=== PATIENT | female | born 1970 | race Caucasian/White ===

== ENCOUNTER 2016-08-14 13:33 | Emergency (ER) | payer SELFPAY ==
[~2016-08-14] VITALS: Ht 165.1 cm; Wt 52.2 kg
[~2016-08-14 13:33] MED LIST: AMBIEN
[2016-08-14] MEDS ORDERED: TOPAMAX PO (13:45)
[2016-08-14] MEDS ORDERED: LAMICTAL PO (13:45)
--- NOTE | 2016-08-14 15:00 | NUR ---
Hearing Impaired Itinerant Teacher is at bedside to collect blood specimens. Pt is refusing blood draw at this time due to her concerns about her health care coverage. Nathan from ER admitting was notified and spoke with the patient about her coverage.
--- NOTE | 2016-08-14 15:20 | NUR ---
Blood drawn by help desk analyst. Per help desk analyst Jacek consent for HIV draw is not required.
[2016-08-14 15:36] LABS: BILIRUBIN,DIRECT 0.1 mg/dL (0.0-0.2); BILIRUBIN,TOTAL 0.4 mg/dL (0.2-1.0); TOTAL PROTEIN, SERUM 7.9 g/dL (6.4-8.2)
--- NOTE | 2016-08-14 15:39 | NUR ---
Pt states she can no longer wait for her written ACI. Pt was given veral ACI by Dr Hancock.
--- NOTE | 2016-08-14 18:30 | NUR ---
Received telephone call from patient requesting her HIV results. There were no reported results, called lab and spoke with Juan Francisco who stated test is send out and there will be no results for approx two days. I notified the patient who was very upset that the test is send out and she could not get the results earlier. Pt also spoke with the nursing lathing supervisor.
[2016-08-16 06:08] LABS: HEPATITIS B SURFACE AB Non Reactive (.); HEPATITIS B SURFACE AG Negative (Negative)
== END 2016-08-14 15:41 | disposition home or self-care (01) ==
LOC: ER 13:34
DX: S61.233A Puncture wound without foreign body of left middle finger without damage to nail, initial encounter (principal); X58.XXXA Exposure to other specified factors, initial encounter; Y93.89 Activity, other specified; Y92.89 Other specified places as the place of occurrence of the external cause; Y99.8 Other external cause status
CPT/HCPCS: 36415; 86706; 86803; 87340; 87536; A4663

== ENCOUNTER 2022-06-17 14:46 | Emergency (ER) | payer BC ==
[~2022-06-17] VITALS: Ht 165.1 cm; Wt 52.2 kg
[~2022-06-17 14:46] MED LIST changes: +LAMICTAL PO; +TOPAMAX PO
[2022-06-17] MEDS ORDERED: LIDOCAINE VISCUS 2% 15 ML UDC MM ONE (15:15)
[2022-06-17] MEDS ORDERED: MAG HYDROX/AL HYDROX/SIMETH 30 ML LIQUID UDC PO ONE (15:15)
[2022-06-17] MEDS ORDERED: MAG HYDROX/AL HYDROX/SIMETH 30 ML LIQUID UDC ONE (15:18)
[2022-06-17] MEDS ORDERED: LIDOCAINE VISCUS 2% 15 ML UDC ONE (15:19)
[2022-06-17 15:27] LABS: MEAN CORPUSCULAR HEMOGLOBIN 30.1 uug (24.7-32.8); MEAN CORPUSCULAR VOLUME 90.5 fL (75.5-95.3); PLATELET COUNT (AUTO) 327 K/uL (179-408)
[2022-06-17] MEDS ORDERED: BUPR150T10 PO (15:28)
[2022-06-17 15:39] LABS: ALANINE AMINOTRANSFERASE 14 U/L (14-59); ALKALINE PHOSPHATASE 76 U/L (50-136); ASPARTATE AMINOTRANSFERASE < 5 U/L (15-37); BILIRUBIN,DIRECT 0.1 mg/dL (0.0-0.2); BILIRUBIN,TOTAL 0.2 mg/dL (0.2-1.0); CARBON DIOXIDE 28 mmol/L (21-32); CHLORIDE 103 mmol/L (98-107); CREATININE 0.9 mg/dL (0.6-1.3); GLUCOSE 109 mg/dL (74-106); LIPASE 144 U/L (73-393); POTASSIUM 4.6 mmol/L (3.5-5.1); TOTAL PROTEIN, SERUM 7.5 g/dL (6.4-8.2); UREA NITROGEN, BLOOD 19 mg/dL (7-18)
[2022-06-17 15:51] LABS: *BILIRUBIN,URIN NEGATIVE (NEGATIVE); *BLOOD, URINE 1+ (NEGATIVE); *CLARITY,URINE CLEAR (CLEAR); *COLOR,URINE YELLOW (YELLOW); *KETONES,URINE NEGATIVE (NEGATIVE); *UROBILINOGEN,URINE 0.2 E.U./dl (NORMAL); LEUKOCYTE ESTERASE ,URINE NEGATIVE (NEGATIVE); NITRITE, URINE NEGATIVE (NEGATIVE); PH,URINE 6.5 (5.0-8.0); UGLUCOSE NEGATIVE (NEGATIVE)
[2022-06-17 15:53] LABS: BACTERIA,URINE NONE SEEN /HPF (NONE SEEN); SQUAMOUS EPITHELIAL CELL,UR FEW /HPF (NONE SEEN); WBC,URINE 0-3 /HPF (0-3)
[2022-06-17 16:28] LABS: *URINE HCG, QUAL NEGATIVE (NEGATIVE)
[2022-06-17] MEDS ORDERED: IV NORMAL SALINE 250 ML IV ONE (16:44)
[2022-06-17] MEDS ORDERED: IOHEXOL 300MG/ML 100 ML INFUS..BTL ONE (16:44)
[2022-06-17] MEDS ORDERED: SWABABLE VALVE TRANSFER SET EA MC ONE (16:44)
--- NOTE | 2022-06-17 17:40 | NUR ---
PT IS IN ROOM #2A. DR AGGARWAL EVALUATED THE PT.
[2022-06-17] MEDS ORDERED: METR500T PO (18:14)
[2022-06-17] MEDS ORDERED: CIPR-262 PO (18:14)
--- NOTE | 2022-06-17 18:57 | NUR ---
PT WAS D/C'd TO HOME. D/C INSTRUCTIONS GIVEN TO THE PT BY DR AGGARWAL.
[2022-06-17 18:58] VITALS: BP 128/68
== END 2022-06-17 18:59 | disposition home or self-care (01) ==
LOC: ER 15:05
DX: K52.9 Noninfective gastroenteritis and colitis, unspecified (principal); R10.2 Pelvic and perineal pain; Z79.899 Other long term (current) drug therapy
CPT/HCPCS: 99285; 74177; 80076; 80048; 81001; 84703; 83690; 85025; 84702; 36415; Q9967; A4663